=== PATIENT | male | born 1980 | race Caucasian/White ===

== ENCOUNTER 2019-05-11 22:27 | Emergency (ER) | payer SELFPAY ==
[~2019-05-11] VITALS: Ht 175.3 cm; Wt 96.6 kg
[2019-05-11 22:35] VITALS: Ht 175.3 cm; Wt 96.6 kg
[2019-05-11 23:26] LABS: microscopic required? YES; urine erythrocyte TRACE (NEGATIVE)
[2019-05-12 01:42] VITALS: BP 134/97
== END 2019-05-12 01:42 | disposition home or self-care (01) ==
LOC: ED 22:27
PROVIDERS: Emergency Medicine
DX: K57.32 Diverticulitis of large intestine without perforation or abscess without bleeding (principal)